=== PATIENT | female | born 1985 | race Caucasian/White ===

== ENCOUNTER → 2019-12-31 | Outpatient (CLI) | payer OTHER ==
[~2019-12-31] MED LIST: HYDACE5 PO; PENVK500 PO; PRED20 PO
[2020-01-02 15:09] LABS: CHLAMYDIA BY NAA Negative (Negative); GONOCOCCUS BY NAA Negative (Negative); TRICH VAG BY NAA Negative (Negative)
== END | disposition home or self-care (01) ==
LOC: LAB EV 17:13 → LAB SHORT 17:13
PROVIDERS: Physician Assistant Medical
DX: N89.8 Other specified noninflammatory disorders of vagina (principal)
CPT/HCPCS: 87070; 87205; 87491; 87591; 87661

== ENCOUNTER 2020-04-09 07:26 | Emergency (ER) | payer OTHER ==
[~2020-04-09] VITALS: Ht 180.3 cm; Wt 81.7 kg
== END 2020-04-09 08:45 | disposition home or self-care (01) ==
LOC: ER 07:26
DX: S20.212A Contusion of left front wall of thorax, initial encounter (principal); S60.222A Contusion of left hand, initial encounter; S60.221A Contusion of right hand, initial encounter; V43.52XA Car driver injured in collision with other type car in traffic accident, initial encounter; Y92.410 Unspecified street and highway as the place of occurrence of the external cause
CPT/HCPCS: 71046; 73120; 99284-25; A9270

== ENCOUNTER → 2022-11-11 | Outpatient (CLI) | payer OTHER ==
[~2022-11-11] MED LIST changes: +CENTRUM SILVER1 EAC2; +DOC250; +Ventolin5 MG/1 ML
== END ==
LOC: LAB SHORT 11:50 → LAB 11:50
DX: K59.09 Other constipation (principal)
CPT/HCPCS: 83993

== ENCOUNTER 2022-11-14 10:17 | Day surgery (SDC) | payer OTHER ==
[~2022-11-14] VITALS: Ht 180.3 cm; Wt 81.6 kg
[~2022-11-14 10:17] MED LIST changes: -CENTRUM SILVER1 EAC2; -DOC250; -Ventolin5 MG/1 ML
[2022-11-14] MEDS ORDERED: DOC250 (11:11)
[2022-11-14] MEDS ORDERED: Ventolin5 MG/1 ML (11:11)
[2022-11-14] MEDS ORDERED: CENTRUM SILVER1 EAC2 (11:11)
[2022-11-14 14:07] VITALS: BP 110/70
== END 2022-11-14 14:00 | disposition home or self-care (01) ==
LOC: ORSCSDS 10:17
PROVIDERS: Internal Medicine Gastroenterology
PROC: 0DB78ZX Excision of Stomach, Pylorus, Via Natural or Artificial Opening Endoscopic, Diagnostic (ICD-10-PCS; principal; 2022-11-14 12:30)
PROC: 0DB98ZX Excision of Duodenum, Via Natural or Artificial Opening Endoscopic, Diagnostic (ICD-10-PCS; principal; 2022-11-14 12:30)
PROC: 0DBE8ZX Excision of Large Intestine, Via Natural or Artificial Opening Endoscopic, Diagnostic (ICD-10-PCS; principal; 2022-11-14 12:30)
PROC: 0DBK8ZX Excision of Ascending Colon, Via Natural or Artificial Opening Endoscopic, Diagnostic (ICD-10-PCS; principal; 2022-11-14 12:30)
DX: R10.13 Epigastric pain (principal); K29.70 Gastritis, unspecified, without bleeding; R19.4 Change in bowel habit; D37.4 Neoplasm of uncertain behavior of colon; E28.2 Polycystic ovarian syndrome; J45.909 Unspecified asthma, uncomplicated; Z79.899 Other long term (current) drug therapy
CPT/HCPCS: 88305; 88342; J2704; J7120

== ENCOUNTER → 2022-12-23 | Outpatient (CLI) | payer OTHER ==
[~2022-12-23] MED LIST changes: +CENTRUM SILVER1 EAC2; +DOC250; +Ventolin5 MG/1 ML
[2022-12-28 13:09] LABS: HPV 16 Negative (Negative); HPV 18 Negative (Negative); HPV OTHER HR TYPES Negative (Negative)
== END | disposition home or self-care (01) ==
LOC: LAB 17:05 → LAB SHORT 17:05
PROVIDERS: Obstetrics & Gynecology
DX: Z01.419 Encounter for gynecological examination (general) (routine) without abnormal findings (principal)
CPT/HCPCS: 87624; G0145

== ENCOUNTER → 2023-09-05 | Outpatient (CLI) | payer OTHER ==
[2023-09-05 15:42] LABS: Source, Urine Voided
[2023-09-05 17:20] LABS: Appearance, Urine Clear (Clear); Bilirubin, Urine Neg (Neg); Blood, Urine Neg (Neg); Color, Urine Yellow (P-Yellow); Glucose Qualitative, Urine Neg (Neg); Ketones, Urine Neg (Neg); Leukocyte Esterase, Urine Neg (Neg); Nitrite, Urine Neg (Neg); Protein, Urine Neg (Neg); Urobilinogen, Urine NORM (Normal)
== END ==
LOC: LAB 15:39 → LAB SHORT 15:39
PROVIDERS: Registered Nurse
DX: R30.0 Dysuria (principal)
CPT/HCPCS: 81003; 87086

== ENCOUNTER → 2024-08-07 | Outpatient (CLI) | payer OTHER ==
[2024-08-08 10:26] LABS: Bacterial Vaginosis PCR Negative (NEGATIVE); Candida Group, PCR NOT DETECTED (NOT DETECT); Candida glabrata-krusei, PCR NOT DETECTED (NOT DETECT)
== END ==
LOC: LAB 15:14 → LAB SHORT 15:14
PROVIDERS: Advanced Practice Midwife
DX: N76.0 Acute vaginitis (principal); R35.0 Frequency of micturition
CPT/HCPCS: 81515; 87086

== ENCOUNTER → 2024-11-08 | Outpatient (CLI) | payer OTHER | LOC: LAB 07:38 → LAB SHORT 07:38 | DX: N84.1 Polyp of cervix uteri (principal) | CPT/HCPCS: 88305 ==

== ENCOUNTER → 2024-11-19 | Outpatient (CLI) | payer OTHER | LOC: LAB 13:01 → LAB SHORT 13:01 | DX: N39.0 Urinary tract infection, site not specified (principal) | CPT/HCPCS: 87086 ==